=== PATIENT | male | born 1965 | race Caucasian/White ===

== ENCOUNTER 2019-07-31 09:13 | Emergency (ER) | payer BC ==
--- NOTE | 2019-07-31 13:03 | ER Document Report ---
ED General - General Chief Complaint: Back Pain Stated Complaint: BACK PAIN Time Seen by Provider: 07/31/19 12:15 TRAVEL OUTSIDE OF THE [place] IN LAST 30 DAYS: No - HPI Notes: Patient is a 54-year-old male who presents emergency department for evaluation of new onset back pain. He states that he has had left-sided back pain in the past. He states he aggravated the left side of his back on Saturday. He states that earlier this week he was bending over to get his dog on the least, he exacerbated the right side of his lower back. He denies any bowel or bladder incontinence, no saddle anesthesia, no focal numbness or weakness. His pain is worsened by movement, improved by rest. He had some Flexeril and Naprosyn is prescribed through urgent care, states he is not really having any luck with this helping. - Related Data Allergies/Adverse Reactions: No Known Allergies Allergy (Unverified 07/31/19 11:47) Past Medical History - General Information source: Patient - Social History Smoking Status: Current Some Day Smoker Chew tobacco use (# tins/day): No Frequency of alcohol use: Occasional Drug Abuse: None Family History: Reviewed & Not Pertinent Patient has suicidal ideation: No Patient has homicidal ideation: No Review of Systems - Review of Systems Constitutional: No symptoms reported EENT: No symptoms reported Cardiovascular: No symptoms reported Respiratory: No symptoms reported Gastrointestinal: No symptoms reported Genitourinary: No symptoms reported Musculoskeletal: See HPI Skin: No symptoms reported Neurological/Psychological: No symptoms reported Physical Exam - Vital signs Vitals: Temp Pulse Resp BP Pulse Ox 98.2 F 84 16 139/93 H 95 07/31/19 09:21 07/31/19 09:21 07/31/19 09:21 07/31/19 09:21 07/31/19 09:21 - Notes Notes: Vital signs reviewed, please refer to chart. Head is normocephalic, atraumatic. Pupils equal round, reactive to light. Neck is supple without meningismus. Heart is regular rate and rhythm. Lungs are clear to auscultation bilaterally. Abdomen is soft, nontender, normoactive bowel sounds throughout. Extremities without cyanosis, clubbing. Posterior calves are nontender. Peripheral pulses are equal. Skin is warm and dry. Examination of the spine is no midline tenderness or step-off. He has paraspinal musculature tenderness noted through out the lumbar spine on the right. He is associated spasm. Negative straight leg raise bilaterally. Strength is plus 5 out of 5 bilateral lower extremities. Patellar reflexes 2+, Achilles reflexes 1+ bilaterally. Sensation intact. Course - Re-evaluation Re-evalutation: 07/31/19 15:17 Patient presents emergency department for evaluation. He has absolutely no red flag symptoms, no focal neurological deficits. At this point I will treat him as a musculoskeletal strain, as his pain is not radiating in any way. He needs to establish care with a primary care physician. The importance of potential physical therapy and further evaluation of this pain to prevent worsening was stressed. The patient voiced understanding to this. Otherwise, patient sent home with steroids and a small amount of pain medication. He is to return to the ED with worsening or new concerning symptoms, continue with Flexeril at home, and return to the ED with worsening. - Vital Signs Vital signs: Temp Pulse Resp BP Pulse Ox 97.9 F 69 16 131/85 H 98 07/31/19 13:12 07/31/19 13:12 07/31/19 13:12 07/31/19 13:12 07/31/19 13:12 Discharge - Discharge Clinical Impression: Right low back pain Condition: Stable Disposition: HOME, SELF-CARE Instructions: Low Back Pain ([facility]), Muscle Strain ([facility]), Warm Packs ([facility]) Additional Instructions: Take medications as prescribed. Continue flexeril at home, watch for drowsiness with this medicine. Take percocet as needed for severe pain, watch for drowsiness and constipation with this medicine. You need to see a primary care doctor, and may see significant improvement with physical therapy. If you develop worsening or new concerning symptoms, return to the ER for reevaluation. Prescriptions: Oxycodone HCl/Acetaminophen [Percocet 5-325 mg Tablet] 1 tab PO Q6HP PRN #10 tablet PRN Reason: Methylprednisolone [Medrol Dosepack (4 mg/Tab) 21 Tab/Dosepak] 21 tab PO DAILY #1 dspk Forms: Return to Work
[2019-07-31 13:14] VITALS: BP 131/85
== END 2019-07-31 13:47 | disposition home or self-care (01) ==
LOC: ER 09:13
DX: M54.5 Low back pain (principal); R25.2 Cramp and spasm; F17.200 Nicotine dependence, unspecified, uncomplicated
CPT/HCPCS: 99283